=== PATIENT | male | born 1980 | race Caucasian/White ===

== ENCOUNTER 2022-05-18 18:08 | Inpatient (IN) | payer SELFPAY ==
[~2022-05-18] VITALS: Ht 182.9 cm; Wt 104.3 kg
[2022-05-18 18:22] VITALS: BP 144/98
--- NOTE | 2022-05-18 18:35 | NUR ---
42 y/o male biba from home, c/o body pain, dizzy, subjective fever for 4 days. pt denies any sick contacts, sob, cp and sore throat. 8/10 body aches. a&ox4, ambulates with steady gait. pmh: htn, afib, cva no deficit nka med: daily vitamin, advil
[2022-05-18] MEDS ORDERED: NACL 0.9% 1,000 ML IV ONE ×3 (19:15→21:15)
[2022-05-18] MEDS ORDERED: KETOROLAC 15 MG/ML VIAL IVP ONE (19:15)
--- NOTE | 2022-05-18 19:38 | NUR ---
ASSUMED CARE OF PT AT THIS TIME. PT PLACED IN BED 11. UPDATED PT ON POC WITH FULL RETURNED VERBAL UNDERSTANDING. LAB AT BEDSIDE FOR BLOOD DRAW. SWABS COLLECTED AND SENT WITH LAB. ERT AT BEDSIDE FOR EKG.
[2022-05-18 19:50] LABS: BASOPHILS # (AUTO) 0.1 K/uL (0.00-0.22); BASOPHILS % (AUTO) 0.5 % (0.0-2.0); EOSINOPHILS # (AUTO) 0.3 K/uL (0-0.4); EOSINOPHILS % (AUTO) 2.1 % (0.0-4.0); HEMATOCRIT 39.1 % (36-52); HEMOGLOBIN 12.9 g/dL (12.0-18.0); LYMPHOCYTES # (AUTO) 1.6 K/uL (2.0-11.5); LYMPHOCYTES % (AUTO) 10.3 % (20.5-51.1); MEAN CORPUSCULAR HEMOGLOBIN 28 pg (27-31); MEAN CORPUSCULAR HGB CONC 33 g/dL (33-37); MEAN CORPUSCULAR VOLUME 84.9 fL (80-94); MONOCYTES # (AUTO) 0.5 K/uL (0.8-1.0); MONOCYTES % (AUTO) 3.5 % (1.7-9.3); NEUTROPHILS % (AUTO) 83.6 % (42.2-75.2); PLATELET COUNT (AUTO) 343 K/uL (140-450); RED BLOOD CELL COUNT(AUTO) 4.61 MIL/uL (4.20-6.10); RED CELL DISTRIBUTION WIDTH 15.2 % (11.6-13.7); WHITE BLOOD COUNT (AUTO) 15.5 K/uL (4.8-10.8)
[2022-05-18 20:55] LABS: ALBUMIN 3.9 g/dL (3.4-5.0); ANION GAP 19.9 (8-16); ASPARTATE AMINOTRANSFERASE 14 U/L (15-37); CARBON DIOXIDE 21.9 mmol/L (21-32); CHLORIDE 102 mmol/L (98-107); GFR ARICAN-AMERICAN 10 mL/min (>90); GLUCOSE 86 mg/dL (74-106); POTASSIUM 3.8 mmol/L (3.5-5.1); SODIUM SERUM 140 mmol/L (136-145); TOTAL BILIRUBIN 0.4 mg/dL (0.0-1.0); UREA NITROGEN, BLOOD 55 mg/dL (7-18)
[2022-05-18 20:56] LABS: CREATININE 7.6 mg/dL (0.6-1.3)
--- NOTE | 2022-05-18 21:00 | NUR ---
DR. TRIVEDI AT BEDSIDE TO REVIEW RESULTS WITH PT. PT WILL BE ADMITTED. PT VERBALIZES FULL UNDERSTANDING.
[2022-05-18] MEDS ORDERED: NACL 0.9% 500 ML IV ONE (21:15)
--- NOTE | 2022-05-18 22:00 | NUR ---
Patient appears to be resting comfortably in bed. Vital Signs within normal limits. Respirations even and unlabored. DENIES ANY PAIN OR NEEDS AT THIS TIME.
--- NOTE | 2022-05-19 | NUR ---
Patient appears to be resting comfortably in bed. Vital Signs within normal limits. Respirations even and unlabored. DENIES ANY PAIN OR NEEDS AT THIS TIME.
--- NOTE | 2022-05-19 01:30 | NUR ---
PT UP AND AMBULATES TO RESTROOM WITH STEADY GAIT.
--- NOTE | 2022-05-19 03:30 | NUR ---
Patient appears to be resting comfortably in bed. Vital Signs within normal limits. Respirations even and unlabored. DENIES ANY PAIN OR NEEDS AT THIS TIME.
--- NOTE | 2022-05-19 05:30 | NUR ---
Patient appears to be resting comfortably in bed. Vital Signs within normal limits. Respirations even and unlabored. DENIES ANY PAIN OR NEEDS.
--- NOTE | 2022-05-19 07:23 | NUR ---
REPORT TO JHONY SPICER
[2022-05-19 08:03] LABS: ANION GAP 13.9 (8-16); CARBON DIOXIDE 23.3 mmol/L (21-32); POTASSIUM 4.2 mmol/L (3.5-5.1); TOTAL BILIRUBIN 0.4 mg/dL (0.0-1.0)
[2022-05-19 08:24] LABS: CREATININE 7.5 mg/dL (0.6-1.3)
[2022-05-19 08:26] LABS: ALBUMIN 3.6 g/dL (3.4-5.0)
--- NOTE | 2022-05-19 08:29 | NUR ---
NOTIFIED DR GALLEGO OF CRITICAL LAB REPORT
--- NOTE | 2022-05-19 08:54 | NUR ---
sleeping, no ac distress, no facial grimacing or grunting, nsr on cm , o2 sat 95% while sleeping, sleep apnea noted, sr up times 2
--- NOTE | 2022-05-19 12:20 | NUR ---
pt a/o times 4, nad, denies any pain, ambulated to restroom, nsr on cm o2 sat 98% ra, sr up times 2
--- NOTE | 2022-05-19 15:32 | NUR ---
sleeping, no ac distress, nsr on cm, o2 sat 98% ra, sr up times 2
--- NOTE | 2022-05-19 19:37 | NUR ---
ASSUMED CARE OF PT AT THIS TIME. PT UPDATED ON POC WITH FULL RETURNED VERBAL UNDERSTANDING. PT DENIES ANY NEEDS OR PAIN AT THIS TIME. VSS
[2022-05-19 20:00] VITALS: BP 156/88
--- NOTE | 2022-05-19 20:59 | NUR ---
PT MOVED TO CHAIR
--- NOTE | 2022-05-19 21:57 | NUR ---
PT WANTING TO SIGN OUT AMA. DR. GALLEGO INFORMED. OK TO DO SO. PT INSTRUCTED TO FOLLOW UP WITH PRIMARY DOCTOR AND ALSO T[employer] ASSOCIATE. PT WILL DUE SO BY SATURDAY.
--- NOTE | 2022-05-19 22:03 | NUR ---
Patient does not wish to proceed with medical care recommended by DR. GALLEGO. Patient given information related to possible complications, up to and including , which could occur as a result of leaving hospital at this time. Patient verbalizes understanding of risks involved leaving against medical advice. UP TO AND INCLUDING Patient has signed AMA form.
== END 2022-05-19 22:03 | disposition left against medical advice (07) | DRG 684 ==
LOC: MED 18:08 → MMU 21:22
PROVIDERS: ADMIT Family Medicine; ATTEND Family Medicine
DX: N17.9 Acute kidney failure, unspecified (principal); I48.91 Unspecified atrial fibrillation; E83.51 Hypocalcemia; I10 Essential (primary) hypertension; R07.89 Other chest pain; Z20.822 Contact with and (suspected) exposure to COVID-19; Z53.29 Procedure and treatment not carried out because of patient's decision for other reasons; G62.9 Polyneuropathy, unspecified; Z86.73 Personal history of transient ischemic attack (TIA), and cerebral infarction without residual deficits; Z79.01 Long term (current) use of anticoagulants
CPT/HCPCS: 36415; 36600; 71045; 76770; 80053; 82306; 82550; 82570; 82803; 84484; 85025; 86308; 93005; 96361; 96374; 99285; J1885; J7030; Q0092